=== PATIENT | female | born 1980 | race Caucasian/White ===

== ENCOUNTER 2018-07-30 23:45 | Emergency (ER) | payer OTHER ==
[2018-07-31 00:31] VITALS: RESP 18
--- NOTE | 2018-07-31 00:31 | ED PDOC ---
Arrival/HPI - General Time Seen by Provider: 07/31/18 00:12 Historian: Patient - History of Present Illness Narrative History of Present Illness (Text): 07/31/18 00:31 Nikia Rangel is a 37 year old female, whose past medical history includes 2 ectopic pregnancies with left-salpingectomy, who presents to the Emergency department complaining of abdominal pain. 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 notes patient recently took a home test, which was positive, 2 weeks prior. Patient reports pain is similar to prior symptoms during last ectopic . Patient denies any fever, chills, chest pain, shortness of breath, nausea, back pain, neck pain, headache, dizziness, or any other complaints. Symptom Onset: Gradual Symptom Course: Unchanged Activities at Onset: Light Context: Home Past Medical History - Provider Review Nursing Documentation Reviewed: Yes - Psychiatric Hx Substance Use: No - Suicidal Assessment Feels Threatened In Home Enviroment: No Family/Social History - Physician Review Nursing Documentation Reviewed: Yes Family/Social History: Unknown Family HX Hx Alcohol Use: No Hx Substance Use: No Allergies/Home Meds Allergies/Adverse Reactions: Allergies No Known Allergies Allergy (Verified 07/31/18 00:33) Home Medications: Home Meds Medication Instructions Recorded Confirmed No Known Home Med 02/02/14 07/31/18 Review of Systems - Physician Review All systems were reviewed & negative as marked: Yes - Review of Systems Constitutional: Normal. absent: Fevers Eyes: Normal ENT: Normal Respiratory: Normal. absent: SOB, Cough Cardiovascular: Normal. absent: Chest Pain Gastrointestinal: Abdominal Pain. absent: Diarrhea, Nausea, Vomiting Genitourinary Female: Vaginal Bleeding Musculoskeletal: Normal. absent: Back Pain, Neck Pain Skin: Normal. absent: Rash Neurological: Normal. absent: Headache, Dizziness Endocrine: Normal Hemo/Lymphatic: Normal Psychiatric: Normal Physical Exam Vital Signs Reviewed: Yes Temperature: Afebrile Blood Pressure: Normal Pulse: Regular Respiratory Rate: Normal Appearance: Positive for: Well-Appearing, Non-Toxic, Comfortable Pain Distress: None Mental Status: Positive for: Alert and Oriented X 3 - Systems Exam Head: Present: Atraumatic, Normocephalic Pupils: Present: PERRL Extroacular Muscles: Present: EOMI Conjunctiva: Present: Normal Mouth: Present: Moist Mucous Membranes Neck: Present: Normal Range of Motion Respiratory/Chest: Present: Clear to Auscultation, Good Air Exchange. No: Respiratory Distress, Accessory Muscle Use Cardiovascular: Present: Regular Rate and Rhythm, Normal S1, S2. No: Murmurs Abdomen: No: Tenderness, Distention, Peritoneal Signs Back: Present: Normal Inspection Upper Extremity: Present: Normal Inspection. No: Cyanosis, Edema Lower Extremity: Present: Normal Inspection. No: Edema Neurological: Present: GCS=15, CN II-XII Intact, Speech Normal Skin: Present: Warm, Dry, Normal Color. No: Rashes Psychiatric: Present: Alert, Oriented x 3, Normal Insight, Normal Concentration Medical Decision Making ED Course and Treatment: 07/31/18 00:31 Impression: 37 year old female complaining of lower abdominal pain with vaginal bleeding for 2 days. Plan: -- Labs, Beta-HCG -- Urinalysis -- US Transvaginal -- Reassess and disposition Prior Visits: Notes and results from previous visits were reviewed. Progress Notes: 07/31/18 02:40 Transvaginal US reviewed, shows: Uterus Uterus measures 8.7 x 5.2 x 5.9 cm. Anteverted. No mass. Gestational Sac: Not present. Yolk Sac: Not seen. Pole: Not seen. Heart rate: Not present. Endometrium Measures 0.84 cm in diameter. Unremarkable. Cervix No cervical abnormality seen. Right Ovary Measures 2.6 x 2.3 x 2.3 cm. Simple cyst measures 1.2 x 1.0 x 1.4 cm. Left Ovary: Removed. Free Fluid None. Other Findings None. Impression 1. No evidence of IUP or ectopic . This may represent a missed . 2. Right ovarian cyst. 07/31/18 02:45 On re-evaluation, patient feels better and is in no acute distress. I have discussed the results and plan with the patient, who expresses understanding. Patient in agreement with plan to be discharged home. Patient is stable for discharge. Patient was instructed to follow up with physician or return if symptoms worsen or new concerning symptoms arise. - Lab Interpretations I have reviewed the lab results: Yes - RAD Interpretation Refund Specialist: Radiologist - Scribe Statement The provider has reviewed the documentation as recorded by the [facility] Provider Scribe Attestation: All medical record entries made by the Scribe were at my direction and personally dictated by me. I have reviewed the chart and agree that the record accurately reflects my personal performance of the history, physical exam, medical decision making, and the department course for this patient. I have also personally directed, reviewed, and agree with the discharge instructions and disposition. Disposition/Present on Arrival - Present on Arrival Any Indicators Present on Arrival: No - Disposition Have Diagnosis and Disposition been Completed?: Yes Diagnosis: Missed , Ectopic Disposition: HOME/ ROUTINE Disposition Time: 02:45 Condition: GOOD Discharge Instructions (ExitCare): Ectopic , Miscarriage (DC) Additional Instructions: return to ed in 48 hrs for repeat [facility] [place] Referrals: Eve Banks MD [Primary Care Provider] - Follow up with primary Malathi Stratton MD [Medical Doctor] - Follow up with primary Forms: [facility] [facility] (Tanzanian)
[2018-07-31 01:18] LABS: BASO # 0.02 K/mm3 (0.0-2.0); BASO % 0.3 % (0.0-3.0); EOS # 0.2 (0.0-0.7); EOS % 2.3 % (1.5-5.0); GRAN # 5.56 (1.4-6.5); GRAN % 70.7 % (50.0-68.0); LYMPH # 1.6 (1.2-3.4); LYMPH % 20.3 % (22.0-35.0); MEAN CELL VOLUME 81.7 fl (80.0-105.0); MEAN CORPUSCULAR HEMOGLOBIN 27.7 pg (25.0-35.0); MEAN CORPUSCULAR HGB CONC 33.9 g/dl (31.0-37.0); MEAN PLATELET VOLUME 10.6 fl (7.0-11.0); MONO # 0.5 (0.1-0.6); MONO % 6.4 % (1.0-6.0); RBC 4.69 10^6/uL (3.5-6.1); RED CELL DISTRIBUTION WIDTH 12.7 % (11.5-14.5); WHITE BLOOD COUNT 7.9 10^3/ul (4.5-11.0)
[2018-07-31 01:22] LABS: INR 1.08; PARTIAL THROMBOPLASTIN TIME 28.2 Seconds (25.1-36.5); PROTHROMBIN TIME 12.3 SECONDS (9.4-12.5)
[2018-07-31 01:28] LABS: ALB/GLOB RATIO 1.2 (1.1-1.8); ALBUMIN 4.5 g/dL (3.0-4.8); ALT/SGPT 28 U/L (7-56); AST/SGOT 24 U/L (14-36); BLOOD UREA NITROGEN 12 mg/dL (7-21); CALCIUM 9.2 mg/dL (8.4-10.5); GFR NON-AFRICAN AMERICAN > 60
[2018-07-31 03:49] VITALS: BP 120/82; PULSE 70; TEMP 97.8; O2SAT 98
--- NOTE | 2018-07-31 16:38 | US ---
Date of service: 07/31/2018 HISTORY: vaginal bleeding. The patient's last menstrual period is dated 06/27/2018 suggesting 4 week 6 day gestation. COMPARISON: None available. TECHNIQUE: Transvaginal pelvic ultrasound was performed with longitudinal and transverse images submitted for interpretation. FINDINGS: UTERUS: Measures 8.7 x 5.2 x 5.9 cm. Uterus is anteverted with somewhat heterogeneous myometrium but with no focal myometrial mass appreciable. No cystic lesions seen either. ENDOMETRIUM: Measures 6.0 mm in diameter. No intrauterine gestation identified. CERVIX: No cervical abnormality identified. RIGHT OVARY: Measures 2.6 x 2.3 x 2.3 cm. No solid mass. Normal flow. Solitary cyst measures 1.2 x 1.0 x 1.4 cm potentially reflecting corpus luteum cyst though this may simply represent a follicle. LEFT OVARY: Not identified. Reportedly status post left oophorectomy. No suspicious adnexal mass or fluid collection appreciable. FREE FLUID: No significant free fluid noted. OTHER FINDINGS: None. IMPRESSION: 1. No intrauterine gestation is identified at this time which may reflect failure of gestation or early nonvisualized viable intrauterine gestation. Ectopic gestation is not been proven or excluded. No suspicious fluid collection throughout the exam. 2. Follow-up serial serum beta HCG analysis is advised and one-week ultrasonography may be performed transvaginally as clinically warranted. 3. Possible corpus luteum cyst or follicle right ovary. Left ovary not identified with the patient reporting prior left oophorectomy in the past. Concordant preliminary report from [facility], 07/31/2018.
== END 2018-07-31 03:02 | disposition home or self-care (01) ==
LOC: ED 23:45
DX: O02.1 Missed abortion (principal)